=== PATIENT | male | born 1980 | race Caucasian/White ===

== ENCOUNTER 2019-02-03 00:45 | Emergency (ER) | payer OTHER ==
[~2019-02-03] VITALS: Ht 177.8 cm; Wt 104.3 kg
[~2019-02-03 00:45] MED LIST: CYCLOBENZAPRINE10 MG PO; CYCLOBENZAPRINE5 M3 PO; HYDROCODONE BIT1 T11 PO; MEDROL DOSEPAK4 MG PO; Motrin,Rufen800 MG PO; NORCO 5-325 TA1 EACH PO
[2019-02-03 01:10] LABS: BASO % 0.7 % (0.0-1.0); EOS # 0.3 10*3/uL (0.0-0.4); EOS % 5.1 % (1.0-4.0); HEMATOCRIT 45.2 % (42.0-52.0); HEMOGLOBIN 14.8 g/dl (14.0-18.0); LYMPH # 1.9 10*3/uL (1.3-4.4); LYMPH % 32.9 % (27.0-41.0); MEAN CELL VOLUME 90.9 fl (80.0-94.0); MEAN CORPUSCULAR HGB 29.8 pg (27.0-31.0); MEAN CORPUSCULAR HGB CONC 32.7 g/dl (33.0-37.0); MEAN PLATELET VOLUME 9.2 fl (9.6-12.3); MONO # 0.7 10*3/uL (0.1-1.0); MONO % 11.5 % (3.0-9.0); NEUT # 2.9 10*3/uL (2.3-7.9); NEUT % 49.6 % (47.0-73.0); PLATELET COUNT AUTOMATED 309 10*3/uL (130-400); RED BLOOD COUNT 4.97 10*6/uL (4.50-5.90); RED CELL DISTRI WIDTH 14.3 % (0-14.5); WHITE BLOOD COUNT 5.9 10*3/uL (4.8-10.8)
[2019-02-03 01:30] LABS: BILIRUBIN NEGATIVE (NEGATIVE); BLOOD NEGATIVE (NEGATIVE); CLARITY SL CLOUDY (CLEAR); COLOR YELLOW (YELLOW); GLUCOSE NEGATIVE (NEGATIVE); KETONE NEGATIVE (NEGATIVE); LEUKO ESTERASE NEGATIVE (NEGATIVE); NITRITE NEGATIVE (NEGATIVE); PH 5.5 (5.0-9.0); SPECIFIC GRAVITY >= 1.030 (1.005-1.030); UROBILINOGEN 0.2 E.U./dl (0.2-1.0)
[2019-02-03 01:38] LABS: MUCOUS TRACE; RBC 0-2 rbc/hpf (0-2); WBC 0-2 wbc/hpf (0-5)
[2019-02-03 01:39] LABS: ALBUMIN 3.7 gm/dl (3.1-4.5); ALKALINE PHOSPHATASE 70 U/L (45-117); BUN 11 mg/dl (7-24); CHLORIDE 110 mmol/L (98-107); CREATININE 1.09 mg/dL (0.70-1.30); LIPASE 71 U/L (73-393); POTASSIUM 4.2 mmol/L (3.5-5.1); SGOT/AST 13 IU/L (3-35); SGPT/ALT 29 U/L (12-78); SODIUM 141 mmol/L (136-145); TOTAL PROTEIN 7.5 gm/dL (6.4-8.2)
[2019-02-03] MEDS ORDERED: CYCLOBENZAPRINE5 M3 PO (03:13)
[2019-02-03] MEDS ORDERED: NAPROSYN500 MG PO (03:13)
== END 2019-02-03 03:39 | disposition home or self-care (01) ==
LOC: ED 00:45
PROVIDERS: Nurse Practitioner Family
DX: S39.012A Strain of muscle, fascia and tendon of lower back, initial encounter (principal); X58.XXXA Exposure to other specified factors, initial encounter; Y93.89 Activity, other specified; Y92.89 Other specified places as the place of occurrence of the external cause; Y99.8 Other external cause status

== ENCOUNTER → 2019-11-21 | Outpatient (CLI) | payer OTHER ==
[~2019-11-21] MED LIST changes: +NAPROSYN500 MG PO
[2019-11-21 11:00] LABS: BASO % 0.6 % (0.0-1.0); EOS # 0.4 10*3/uL (0.0-0.4); EOS % 5.5 % (1.0-4.0); HEMATOCRIT 46.1 % (42.0-52.0); LYMPH # 1.9 10*3/uL (1.3-4.4); LYMPH % 29.2 % (27.0-41.0); MEAN CELL VOLUME 89.5 fl (80.0-94.0); MEAN CORPUSCULAR HGB 29.5 pg (27.0-31.0); MEAN PLATELET VOLUME 9.4 fl (9.6-12.3); MONO # 0.6 10*3/uL (0.1-1.0); MONO % 9.6 % (3.0-9.0); NEUT # 3.5 10*3/uL (2.3-7.9); NEUT % 54.5 % (47.0-73.0); PLATELET COUNT AUTOMATED 342 10*3/uL (130-400); RED BLOOD COUNT 5.15 10*6/uL (4.50-5.90); RED CELL DISTRI WIDTH 14.1 % (0-14.5); WHITE BLOOD COUNT 6.3 10*3/uL (4.8-10.8)
[2019-11-21 11:27] LABS: ALBUMIN 3.6 gm/dl (3.1-4.5); ALKALINE PHOSPHATASE 71 U/L (45-117); BUN 11 mg/dl (7-24); CHLORIDE 108 mmol/L (98-107); CREATININE 1.03 mg/dL (0.70-1.30); LIPASE 70 U/L (73-393); SGOT/AST 20 IU/L (3-35); SGPT/ALT 43 U/L (12-78); SODIUM 141 mmol/L (136-145); TOTAL PROTEIN 7.7 gm/dL (6.4-8.2)
== END | disposition home or self-care (01) ==
LOC: LAB 10:25
PROVIDERS: Family Medicine
DX: R10.33 Periumbilical pain (principal); R53.83 Other fatigue; R63.5 Abnormal weight gain; R19.5 Other fecal abnormalities; R19.8 Other specified symptoms and signs involving the digestive system and abdomen

== ENCOUNTER → 2019-11-21 | Outpatient (CLI) | payer OTHER | END | disposition home or self-care (01) | LOC: LAB 00:01 | DX: R19.8 Other specified symptoms and signs involving the digestive system and abdomen (principal); R63.5 Abnormal weight gain; R19.5 Other fecal abnormalities; R10.33 Periumbilical pain; R53.83 Other fatigue ==

== ENCOUNTER 2021-05-09 23:17 | Inpatient (IN) | payer OTHER ==
[~2021-05-09] VITALS: Ht 175.2 cm; Wt 115.4 kg
[2021-05-09 23:23] VITALS: BP 156/91
[2021-05-09 23:51] LABS: BASO % 0.2 % (0.0-1.0); HEMATOCRIT 44.2 % (42.0-52.0); LYMPH # 0.5 10*3/uL (1.3-4.4); LYMPH % 7.9 % (27.0-41.0); MEAN CELL VOLUME 87.5 fl (80.0-94.0); MEAN CORPUSCULAR HGB 29.5 pg (27.0-31.0); MEAN CORPUSCULAR HGB CONC 33.7 g/dl (33.0-37.0); MEAN PLATELET VOLUME 9.6 fl (9.6-12.3); MONO # 0.4 10*3/uL (0.1-1.0); MONO % 7.5 % (3.0-9.0); NEUT # 4.9 10*3/uL (2.3-7.9); NEUT % 84.1 % (47.0-73.0); PLATELET COUNT AUTOMATED 241 10*3/uL (130-400); RED BLOOD COUNT 5.05 10*6/uL (4.50-5.90); RED CELL DISTRI WIDTH 13.6 % (0-14.5); WHITE BLOOD COUNT 5.9 10*3/uL (4.8-10.8)
[2021-05-10] VITALS: BP 96/67
[2021-05-10 00:08] LABS: ALBUMIN 3.1 gm/dl (3.1-4.5); ALKALINE PHOSPHATASE 62 U/L (45-117); BUN 17 mg/dl (7-24); CHLORIDE 98 mmol/L (98-107); CREATININE 1.22 mg/dL (0.70-1.30); POTASSIUM 4.3 mmol/L (3.5-5.1); SGOT/AST 60 IU/L (3-35); SGPT/ALT 39 U/L (12-78); SODIUM 133 mmol/L (136-145); TOTAL PROTEIN 8.1 gm/dL (6.4-8.2)
[2021-05-10 01:15] VITALS: BP 115/64
[2021-05-10 06:01] LABS: ALBUMIN 3.2 gm/dl (3.1-4.5); ALKALINE PHOSPHATASE 65 U/L (45-117); BUN 21 mg/dl (7-24); CHLORIDE 99 mmol/L (98-107); CREATININE 1.34 mg/dL (0.70-1.30); POTASSIUM 4.8 mmol/L (3.5-5.1); SGOT/AST 59 IU/L (3-35); SGPT/ALT 41 U/L (12-78); SODIUM 132 mmol/L (136-145); TOTAL PROTEIN 8.4 gm/dL (6.4-8.2)
[2021-05-10 06:20] LABS: HEMATOCRIT 47.3 % (42.0-52.0); LYMPH # 0.6 10*3/uL (1.3-4.4); MEAN CELL VOLUME 87.9 fl (80.0-94.0); MEAN PLATELET VOLUME 10.5 fl (9.6-12.3); MONO # 0.3 10*3/uL (0.1-1.0); MONO % 6.1 % (3.0-9.0); NEUT # 3.8 10*3/uL (2.3-7.9); NEUT % 80.8 % (47.0-73.0); PLATELET COUNT AUTOMATED 247 10*3/uL (130-400); RED BLOOD COUNT 5.38 10*6/uL (4.50-5.90); RED CELL DISTRI WIDTH 13.6 % (0-14.5); WHITE BLOOD COUNT 4.7 10*3/uL (4.8-10.8)
[2021-05-10 08:00] VITALS: BP 102/47
[2021-05-10 12:00] VITALS: BP 124/88
[2021-05-10 12:52] LABS: ABG BASE EXCESS 3.2 mmol/L (-2.0-2.0); ARTERIAL BLOOD GAS PH 7.462 (7.35-7.45); ARTERIAL BLOOD GAS PO2 50.6 (80-90)
[2021-05-10 16:00] VITALS: BP 119/68
[2021-05-10 17:58] LABS: ABG BASE EXCESS 2.5 mmol/L (-2.0-2.0); ARTERIAL BLOOD GAS PH 7.461 (7.35-7.45)
[2021-05-10 20:00] VITALS: BP 100/50
[2021-05-11] VITALS (10 sets, daily range): BP systolic 87–136; BP diastolic 49–84
[2021-05-11 06:21] LABS: BASO % 0.1 % (0.0-1.0); HEMATOCRIT 44.8 % (42.0-52.0); LYMPH # 0.6 10*3/uL (1.3-4.4); LYMPH % 7.3 % (27.0-41.0); MEAN CELL VOLUME 89.2 fl (80.0-94.0); MEAN CORPUSCULAR HGB 29.3 pg (27.0-31.0); MEAN CORPUSCULAR HGB CONC 32.8 g/dl (33.0-37.0); MEAN PLATELET VOLUME 10.6 fl (9.6-12.3); MONO # 0.5 10*3/uL (0.1-1.0); MONO % 6.9 % (3.0-9.0); NEUT # 6.5 10*3/uL (2.3-7.9); NEUT % 84.7 % (47.0-73.0); PLATELET COUNT AUTOMATED 314 10*3/uL (130-400); RED BLOOD COUNT 5.02 10*6/uL (4.50-5.90); RED CELL DISTRI WIDTH 13.6 % (0-14.5); WHITE BLOOD COUNT 7.7 10*3/uL (4.8-10.8)
[2021-05-11 06:27] LABS: CHLORIDE 103 mmol/L (98-107); POTASSIUM 4.5 mmol/L (3.5-5.1); SODIUM 136 mmol/L (136-145)
[2021-05-11 06:33] LABS: ALBUMIN 2.7 gm/dl (3.1-4.5); ALKALINE PHOSPHATASE 62 U/L (45-117); BUN 24 mg/dl (7-24); CPK 510 U/L (39-308); CREATININE 1.17 mg/dL (0.70-1.30); SGOT/AST 65 IU/L (3-35); SGPT/ALT 43 U/L (12-78); TOTAL PROTEIN 7.6 gm/dL (6.4-8.2)
[2021-05-11 14:42] LABS: BILIRUBIN Negative (Negative); BLOOD 1+ (Negative); CLARITY Clear (Clear); COLOR Yellow (Yellow); GLUCOSE Negative (Negative); KETONE Negative (Negative); LEUKO ESTERASE Negative (Negative); NITRITE Negative (Negative); PH 5.5 (4.5-8.0); SPECIFIC GRAVITY >= 1.030 (1.001-1.030); UROBILINOGEN 0.2 E.U./dl (0.0-1.0)
[2021-05-11 14:51] LABS: BACTERIA 2+; EPITHELIAL CELLS 0-2; MUCOUS TRACE
[2021-05-11 15:59] LABS: ABG BASE EXCESS -0.5 mmol/L (-2.0-2.0); ARTERIAL BLOOD GAS PH 7.367 (7.35-7.45); ARTERIAL BLOOD GAS PO2 121.2 (80-90)
[2021-05-12] VITALS (7 sets, daily range): BP systolic 103–119; BP diastolic 56–62
[2021-05-12 06:06] LABS: ALBUMIN 2.6 gm/dl (3.1-4.5); BUN 32 mg/dl (7-24); CHLORIDE 105 mmol/L (98-107); POTASSIUM 4.8 mmol/L (3.5-5.1); SGOT/AST 58 IU/L (3-35); SGPT/ALT 42 U/L (12-78); SODIUM 139 mmol/L (136-145)
[2021-05-12 06:10] LABS: ALKALINE PHOSPHATASE 77 U/L (45-117); CPK 390 U/L (39-308); TOTAL PROTEIN 7.1 gm/dL (6.4-8.2)
[2021-05-12 06:26] LABS: HEMATOCRIT 44.3 % (42.0-52.0); MEAN CELL VOLUME 89.3 fl (80.0-94.0); MEAN CORPUSCULAR HGB 29.2 pg (27.0-31.0); MEAN CORPUSCULAR HGB CONC 32.7 g/dl (33.0-37.0); MEAN PLATELET VOLUME 10.9 fl (9.6-12.3); PLATELET COUNT AUTOMATED 369 10*3/uL (130-400); RED BLOOD COUNT 4.96 10*6/uL (4.50-5.90); RED CELL DISTRI WIDTH 13.8 % (0-14.5); WHITE BLOOD COUNT 9.5 10*3/uL (4.8-10.8)
[2021-05-12 07:32] LABS: BURR CELLS FEW; PLATELET SUFFICIENCY NORMAL (NORMAL); SCHISTOCYTES FEW; TOTAL CELLS COUNTED 100 #CELLS
[2021-05-12 08:47] LABS: ABG BASE EXCESS 2.5 mmol/L (-2.0-2.0); ARTERIAL BLOOD GAS PH 7.397 (7.35-7.45); ARTERIAL BLOOD GAS PO2 88.6 (80-90)
[2021-05-13] VITALS (15 sets, daily range): BP systolic 99–132; BP diastolic 53–72
[2021-05-13 04:07] LABS: HEMATOCRIT 42.8 % (42.0-52.0); MEAN CELL VOLUME 89.9 fl (80.0-94.0); MEAN CORPUSCULAR HGB CONC 32.2 g/dl (33.0-37.0); MEAN PLATELET VOLUME 9.8 fl (9.6-12.3); PLATELET COUNT AUTOMATED 317 10*3/uL (130-400); RED BLOOD COUNT 4.76 10*6/uL (4.50-5.90); RED CELL DISTRI WIDTH 13.7 % (0-14.5); WHITE BLOOD COUNT 7.8 10*3/uL (4.8-10.8)
[2021-05-13 04:42] LABS: ATYPICAL LYMPHS 3 % (0-0); PLATELET SUFFICIENCY NORMAL (NORMAL); TOTAL CELLS COUNTED 100 #CELLS
[2021-05-13 05:56] LABS: ALBUMIN 2.6 gm/dl (3.1-4.5); ALKALINE PHOSPHATASE 60 U/L (45-117); BUN 33 mg/dl (7-24); CHLORIDE 106 mmol/L (98-107); CREATININE 1.09 mg/dL (0.70-1.30); POTASSIUM 4.4 mmol/L (3.5-5.1); SGOT/AST 44 IU/L (3-35); SGPT/ALT 48 U/L (12-78); SODIUM 141 mmol/L (136-145); TOTAL PROTEIN 6.7 gm/dL (6.4-8.2)
[2021-05-13 06:01] LABS: CPK 143 U/L (39-308)
[2021-05-13 09:30] LABS: ABG BASE EXCESS 0.3 mmol/L (-2.0-2.0); ARTERIAL BLOOD GAS PH 7.39 (7.35-7.45)
[2021-05-14] VITALS (24 sets, daily range): BP systolic 106–133; BP diastolic 63–79
[2021-05-14 05:51] LABS: ALBUMIN 2.6 gm/dl (3.1-4.5); BUN 32 mg/dl (7-24); CHLORIDE 105 mmol/L (98-107); CREATININE 1.07 mg/dL (0.70-1.30); POTASSIUM 4.5 mmol/L (3.5-5.1); SGOT/AST 50 IU/L (3-35); SGPT/ALT 46 U/L (12-78); SODIUM 142 mmol/L (136-145)
[2021-05-14 05:55] LABS: ALKALINE PHOSPHATASE 70 U/L (45-117); TOTAL PROTEIN 6.6 gm/dL (6.4-8.2)
[2021-05-14 06:00] LABS: CPK 330 U/L (39-308)
[2021-05-14 06:18] LABS: BASO % 0.4 % (0.0-1.0); EOS # 0.1 10*3/uL (0.0-0.4); EOS % 1.2 % (1.0-4.0); HEMATOCRIT 45.7 % (42.0-52.0); LYMPH # 0.6 10*3/uL (1.3-4.4); LYMPH % 6.3 % (27.0-41.0); MEAN CELL VOLUME 92.7 fl (80.0-94.0); MEAN CORPUSCULAR HGB CONC 31.3 g/dl (33.0-37.0); MEAN PLATELET VOLUME 10.3 fl (9.6-12.3); MONO # 0.3 10*3/uL (0.1-1.0); MONO % 3.4 % (3.0-9.0); NEUT # 8.4 10*3/uL (2.3-7.9); NEUT % 86.3 % (47.0-73.0); PLATELET COUNT AUTOMATED 336 10*3/uL (130-400); RED BLOOD COUNT 4.93 10*6/uL (4.50-5.90); RED CELL DISTRI WIDTH 13.8 % (0-14.5); WHITE BLOOD COUNT 9.7 10*3/uL (4.8-10.8)
[2021-05-14 08:12] LABS: ABG BASE EXCESS 5.8 mmol/L (-2.0-2.0); ARTERIAL BLOOD GAS PH 7.298 (7.35-7.45); ARTERIAL BLOOD GAS PO2 59.9 (80-90)
[2021-05-14 12:00] LABS: ABG BASE EXCESS 2.4 mmol/L (-2.0-2.0); ARTERIAL BLOOD GAS PH 7.288 (7.35-7.45); ARTERIAL BLOOD GAS PO2 73.3 (80-90)
[2021-05-14 21:49] LABS: ARTERIAL BLOOD GAS PH 7.274 (7.35-7.45); ARTERIAL BLOOD GAS PO2 62.1 (80-90)
[2021-05-15] VITALS: BP 104/66
[2021-05-15 01:00] VITALS: BP 106/68
== END 2021-05-15 01:48 | disposition short-term general hospital (02) | DRG 137 ==
LOC: ED 23:17 → EDHOLD 05-10 00:32 → 4E 05-10 00:32 → ICCU 05-10 00:32 → 4E 05-10 00:46 → ICCU 05-10 19:22
PROVIDERS: Family Medicine; Internal Medicine; Internal Medicine Critical Care Medicine; ADMIT Internal Medicine; ATTEND Internal Medicine
PROC: 5A09357 Assistance with Respiratory Ventilation, Less than 24 Consecutive Hours, Continuous Positive Airway Pressure (ICD-10-PCS; 2021-05-10)
PROC: XW033H5 Introduction of Tocilizumab into Peripheral Vein, Percutaneous Approach, New Technology Group 5 (ICD-10-PCS; 2021-05-10)
PROC: 5A1945Z Respiratory Ventilation, 24-96 Consecutive Hours (ICD-10-PCS; principal; 2021-05-11)
PROC: XW033E5 Introduction of Remdesivir Anti-infective into Peripheral Vein, Percutaneous Approach, New Technology Group 5 (ICD-10-PCS; 2021-05-11)
PROC: 0BH17EZ Insertion of Endotracheal Airway into Trachea, Via Natural or Artificial Opening (ICD-10-PCS; 2021-05-11)
PROC: 5A09357 Assistance with Respiratory Ventilation, Less than 24 Consecutive Hours, Continuous Positive Airway Pressure (ICD-10-PCS; 2021-05-11)
PROC: 5A0935A Assistance with Respiratory Ventilation, Less than 24 Consecutive Hours, High Flow/Velocity Cannula (ICD-10-PCS; 2021-05-11)
PROC: 03HC33Z Insertion of Infusion Device into Left Radial Artery, Percutaneous Approach (ICD-10-PCS; 2021-05-11)
PROC: B34JZZ3 Ultrasonography of Left Upper Extremity Arteries, Intravascular (ICD-10-PCS; 2021-05-11)
PROC: 05HY33Z Insertion of Infusion Device into Upper Vein, Percutaneous Approach (ICD-10-PCS; 2021-05-11)
PROC: B54MZZA Ultrasonography of Right Upper Extremity Veins, Guidance (ICD-10-PCS; 2021-05-11)
PROC: 0W9B30Z Drainage of Left Pleural Cavity with Drainage Device, Percutaneous Approach (ICD-10-PCS; 2021-05-11)
DX: U07.1 COVID-19 (principal); E87.1 Hypo-osmolality and hyponatremia; N17.0 Acute kidney failure with tubular necrosis; R00.1 Bradycardia, unspecified; J93.9 Pneumothorax, unspecified; R73.9 Hyperglycemia, unspecified; E83.41 Hypermagnesemia; R74.01 Elevation of levels of liver transaminase levels; E66.9 Obesity, unspecified; J12.82 Pneumonia due to coronavirus disease 2019; J96.01 Acute respiratory failure with hypoxia